=== PATIENT | male | born 1965 | race Caucasian/White ===

== ENCOUNTER 2024-07-30 16:26 | Emergency (ER) | payer MEDICAID ==
[~2024-07-30] VITALS: Ht 167.6 cm; Wt 165.0 kg
[2024-07-30 16:38] VITALS: O2SAT 98
[2024-07-30 16:55] VITALS: BP 182/67; PULSE 63; RESP 18; TEMP 36.7; O2SAT 99
[2024-07-30] MEDS ORDERED: GABA-534 MT (19:23)
[2024-07-30] MEDS ORDERED: IBUP-2030 MT (19:23)
== END 2024-07-30 19:39 | disposition home or self-care (01) ==
LOC: ER 16:26
DX: M51.372 Other intervertebral disc degeneration, lumbosacral region with discogenic back pain and lower extremity pain (principal); Z79.899 Other long term (current) drug therapy
CPT/HCPCS: 99283